=== PATIENT | male | born 1955 | race Caucasian/White ===

== ENCOUNTER 2017-03-27 11:54 | Day surgery (SDC) | payer OTHER ==
[2017-03-27] VITALS (7 sets, daily range): BP systolic 133–150; BP diastolic 63–86; PULSE 52–65; TEMP 97.8–98
[~2017-03-27] VITALS: Ht 170.2 cm; Wt 86.9 kg
[~2017-03-27 11:54] MED LIST: CIPRO 500MG TA500 MG PO; CLARITIN 1010 MG/TAB PO; GLUCOPHAGE500 MG/TAB PO; MOTRIN 800800 MG/TAB PO; NORCO 325 MG-51 TAB PO; PERCOCET 325 MG1 TA2 PO; PHENERGAN 25 TA25 MG PO; PROSCAR PO; SENOKOT8.6 MG PO; ZOFRAN 4MG T4 MG/TAB PO
[2017-03-27] MEDS ORDERED: VESICARE10 MG PO (13:05)
[2017-03-27] MEDS ORDERED: NORCO 325 MG-51 TAB PO (15:14)
== END 2017-03-27 16:35 | disposition home or self-care (01) ==
LOC: SDCO 11:54
DX: N21.0 Calculus in bladder (principal); K21.9 Gastro-esophageal reflux disease without esophagitis; E11.9 Type 2 diabetes mellitus without complications; E78.00 Pure hypercholesterolemia, unspecified; M19.90 Unspecified osteoarthritis, unspecified site; M10.9 Gout, unspecified; G47.33 Obstructive sleep apnea (adult) (pediatric); Z85.46 Personal history of malignant neoplasm of prostate; Z90.79 Acquired absence of other genital organ(s); Z79.84 Long term (current) use of oral hypoglycemic drugs; Z80.0 Family history of malignant neoplasm of digestive organs; Z80.42 Family history of malignant neoplasm of prostate
CPT/HCPCS: J0690; J2704; J3010; J7120

== ENCOUNTER → 2018-08-10 | Outpatient (CLI) | payer BC ==
[~2018-08-10] MED LIST changes: +VESICARE10 MG PO
== END ==
LOC: COL.RAD 13:28
DX: M54.2 Cervicalgia (principal); Z53.9 Procedure and treatment not carried out, unspecified reason

== ENCOUNTER → 2018-09-09 | Outpatient (CLI) | payer BC | LOC: COL.RAD 10:49 | DX: E04.2 Nontoxic multinodular goiter (principal) | CPT/HCPCS: A9516 ==

== ENCOUNTER 2018-09-17 14:30 | Outpatient (RCR) | payer BC | END 2018-11-23 | disposition home or self-care (01) | LOC: MKS.ESL.PT | DX: M54.12 Radiculopathy, cervical region (principal); M79.622 Pain in left upper arm; R93.7 Abnormal findings on diagnostic imaging of other parts of musculoskeletal system; Z79.84 Long term (current) use of oral hypoglycemic drugs; Z79.899 Other long term (current) drug therapy; Z87.891 Personal history of nicotine dependence ==